=== PATIENT | female | born 1935 | race Caucasian/White ===

== ENCOUNTER 2016-09-15 19:22 | Inpatient (IN) | payer OTHER ==
--- NOTE | 2016-09-15 19:18 | EDPHY ---
H & P Time Seen by Provider: 09/15/16 19:22 HPI/ROS: Portions of this note were transcribed by a medical director of hospice. I personally performed the history, physical exam, and medical decision-making; and confirmed the accuracy of the information in the transcribed note. CHIEF COMPLAINT: Left hip injury HISTORY OF PRESENT ILLNESS: This patient is an anticoagulated 80 year old female who presents to the Emergency Department by EMS with left hip pain secondary to falling out of bed earlier today. 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 She tells me that she was sleeping when she fell out of bed; she woke up when she hit her left hip. She denies head, neck, or back trauma. Upon arrival she complains of moderate left hip pain exacerbated by movement. Unable to stand. Started right after the fall. Her pain was alleviated slightly my Morphine and Fentanyl administered in transport. She has no additional complaints. She denies any recent illnesses or fevers. REVIEW OF SYSTEMS: She reports scattered bruising, normal for her. She is blind in her right eye. Otherwise, a comprehensive 10 point review of systems is negative aside from elements mentioned in the history of present illness. PAST MEDICAL HISTORY: Regularly on 3L O2 at home. Atrial flutter (Warfarin). Breast cancer metastatic to bone. Social history: Moved here from [place] four months ago. No local PCP. She is taken care of intermittently by in-home hospice Daughter and son-in-law at bedside. General Appearance: Alert and conversant, cooperative. Eyes: No scleral icterus. Blind in right eye. ENT, Mouth: Normal mucous membranes. No external evidence of head trauma. Respiratory: Normal respiratory effort, breath sounds equal, lungs are clear to auscultation. Cardiovascular: Regular rate and rhythm. Normal pulse in the left foot. Gastrointestinal: Abdomen is soft and non tender. Neurological: Alert and oriented x3. Normally conversant. Face symmetric, normal sensation in all extremities. She can move the toes of both feet. Skin: Extensive scattered ecchymosis to the extremities; the patient states this is normal for her. Musculoskeletal: No peripheral edema. Left leg is shortened, externally rotated. Left hip pain on rotation and axial loading. Neck and back: No cervical, thoracic, or lumbar spine midline tenderness. Psychiatric: Not agitated. Emergency Department course/MDM: Took EMS report at bedside. The patient's daughter tells me that the patient is taken care of by [facility]. We have contacted them given high suspicion for hip fracture to discuss appropriate treatment. 1951: [facility] staff arrived in the ED. 1954: I discussed imaging results with the patient and her family. I shared with them options of hospital admission with or without surgery, arrangement for senior care care, or discharge home with pain management and regular hospice care. She wishes to be admitted to the hospital tonight and will make decisions on future treatment at a later point. I agree that this is an appropriate treatment plan for this time. 2026: Consultation with Dr. Cesar Randhawa, orthopedic surgeon, who will visit the patient in the hospital tomorrow. 2035: Consultation with Dr. Jeanne Nava, hospitalist, who accepts admission. IMAGING: Study: X-ray of the left hip Indication: Pain, trauma Results: X-ray of the left hip was obtained. The results of the study are: Left femoral neck fracture. I viewed the images myself on the PACS system. Radiologist interpretation is pending at the time of this report. Constitutional: Initial Vital Signs Temperature (C) 37.3 C 09/15/16 19:25 Heart Rate 130 H 09/15/16 19:25 Respiratory Rate 20 09/15/16 19:25 Blood Pressure 139/108 H 09/15/16 19:25 O2 Sat (%) 98 09/15/16 19:25 O2 Delivery Mode Nasal Cannula O2 (L/minute) 3 Allergies/Adverse Reactions: hydrocodone bitartrate [From Vicodin] Allergy (Intermediate, Verified 09/15/16 23:23) Hives Sulfa (Sulfonamide Antibiotics) Allergy (Intermediate, Verified 09/15/16 23:23) Rash acetaminophen [From Vicodin] Adverse Reaction (Unknown, Verified 09/15/16 23:22) Home Medications: Medication Instructions Recorded AMITRIPTYLINE HCL [Amitriptyline 100 mg PO HS 09/15/16 100 mg] Acetaminophen [Tylenol 325mg (*)] 650 mg PO Q4 PRN 09/15/16 Albuterol [Proventil Inhaler HFA 2 puffs IH Q4H 09/15/16 (*)] Anastrozole [Arimidex 1 mg (*)] 1 mg PO DAILY 09/15/16 Bisacodyl [Dulcolax] 5 mg PO BID 09/15/16 Dexamethasone [Decadron 4 MG (*)] 8 mg PO DAILY 09/15/16 Dextran 70/Hypromellose 1 each OP DAILY PRN 09/15/16 [Artificial Tears] Docusate Sodium [Colace 100 MG (*)] 100 mg PO HS 09/15/16 Furosemide [Lasix 40 MG (*)] 40 mg PO DAILY 09/15/16 Gentamicin 0.3% [Gentak 0.3% Opht 2 drop OP DAILY 09/15/16 Drops (RX)] HYDROmorphone HCL [Dilaudid 4 mg 4 mg PO TID PRN 09/15/16 (*)] Ipratropium/Albuterol [Duoneb (*)] 3 ml IH DAILY 09/15/16 LORazepam [Ativan (*)] 0.5 mg PO Q6H PRN 09/15/16 Morphine Sulfate [Ms Contin] 30 mg PO DAILY@04,21 09/15/16 Polyvinyl Alcohol/Povidone/Pf 1 each OP DAILY 09/15/16 [Refresh Classic Eye Drops] Potassium Chloride [Klor-Con 10] 10 meq PO DAILY 09/15/16 Warfarin Sodium [Coumadin 2MG (*)] 1 mg PO MOTUWETHFRSA 09/15/16 Warfarin Sodium [Coumadin 2MG (*)] 2 mg PO LOPEZ 09/15/16 morphINE IR [morphINE IR 15 mg (*)] 15 mg PO DAILY@14 09/15/16 Medical Decision Making Differential Diagnosis: Differential for left hip injury considered including but not limited to hip fracture, pelvis fracture, hip dislocation, contusion. - Data Points Laboratory Results: Laboratory Results 09/15/16 20:35 09/15/16 20:35 09/15/16 09/15/16 20:35 20:20 WBC 10.97 H 10^3/uL (3.80-9.50) RBC 4.63 10^6/uL (4.18-5.33) Hgb 13.8 g/dL (12.6-16.3) Hct 43.0 % (38.0-47.0) MCV 92.9 fL (81.5-99.8) MCH 29.8 pg (27.9-34.1) MCHC 32.1 L g/dL (32.4-36.7) RDW 16.7 H % (11.5-15.2) Plt Count 223 10^3/uL (150-400) MPV 9.0 fL (8.7-11.7) Neut % (Auto) 86.5 H % (39.3-74.2) Lymph % (Auto) 7.1 L % (15.0-45.0) [place] % (Auto) 5.1 % (4.5-13.0) Eos % (Auto) 0.0 L % (0.6-7.6) Baso % (Auto) 0.2 L % (0.3-1.7) Nucleat RBC Rel Count 0.0 % (0.0-0.2) Absolute Neuts (auto) 9.49 H 10^3/uL (1.70-6.50) Absolute Lymphs (auto) 0.78 L 10^3/uL (1.00-3.00) Absolute Monos (auto) 0.56 10^3/uL (0.30-0.80) Absolute Eos (auto) 0.00 L 10^3/uL (0.03-0.40) Absolute Basos (auto) 0.02 10^3/uL (0.02-0.10) Absolute Nucleated RBC 0.00 10^3/uL (0-0.01) Immature Gran % 1.1 % (0.0-1.1) Immature Gran # 0.12 H 10^3/uL (0.00-0.10) PT 20.8 H SEC (12.0-15.0) INR 1.78 H (0.83-1.16) Sodium 141 mEq/L (134-144) Potassium 3.9 mEq/L (3.5-5.2) Chloride 104 mEq/L (97-110) Carbon Dioxide 33 H mEq/l (22-31) Anion Gap 4 mEq/L (8-16) BUN 23 mg/dL (7-23) Creatinine 0.6 mg/dL (0.6-1.0) Estimated GFR > 60 Glucose 116 H mg/dL (70-100) Calcium 8.7 mg/dL (8.5-10.4) Urine RBC 1-3 /hpf (0-3) Urine WBC 15-25 H /hpf (0-3) Ur Epithelial Cells NONE SEEN /lpf (NONE-1+) Departure - Departure Disposition: [facility] Inpatient Acute Clinical Impression: Fracture of femoral neck, left Qualifiers: Encounter type: initial encounter Fracture type: closed Qualifier Code: ( S72.002A) Fracture of unspecified part of neck of left femur, initial encounter for closed fracture Condition: Fair Report Scribed for: Ricardo Conte Report Scribed by: Irish Priest Date of Report: 09/15/16 Time of Report: 19:18
--- NOTE | 2016-09-15 20:49 | DX ---
Two Views of the Hip September 15, 2016 at 1953 hours Indication: Hip pain. Comparisons: None. Findings: There is a left femoral neck fracture, with superior displacement of approximately 2 cm of the distal fracture fragment in relation to the femoral head and neck. The femoral head appears nor mal in the acetabulum bilaterally. No pubic rami fractures. Degenerative changes in the lower spine are present. Impression: Left femoral neck fracture. Initial accurate preliminary provided by the Emergency Depa rtment physician. E:CHLOE/librado
[2016-09-15 20:54] LABS: % IMMATURE GRANULYOCYTES 1.1 % (0.0-1.1); ABSOLUTE IMMATURE GRANULOCYTES 0.12 10^3/uL (0.00-0.10); ADD DIFF? NO; ADD MORPH? NO; ADD SCAN? NO; ATYPICAL LYMPHOCYTE FLAG 0 (0-99); FRAGMENT RBC FLAG 0 (0-99); HEMOGLOBIN 13.8 g/dL (12.6-16.3); LEFT SHIFT FLG 20 (0-99); LIPEMIA HEMOLYSIS FLAG 80 (0-99); MEAN CELL HEMOGLOBIN 29.8 pg (27.9-34.1); MEAN CELL HEMOGLOBIN CONCENTR. 32.1 g/dL (32.4-36.7); MEAN CELL VOLUME 92.9 fL (81.5-99.8); PLATELET CLUMPS FLAG 0 (0-99); PLATELET COUNT 223 10^3/uL (150-400); RED BLOOD CELL COUNT 4.63 10^6/uL (4.18-5.33); RED CELL DISTRIBUTION WIDTH 16.7 % (11.5-15.2)
[2016-09-15 20:59] LABS: INR 1.78 (0.83-1.16); PROTIME(PATIENT) 20.8 SEC (12.0-15.0)
[2016-09-15] MEDS ORDERED: HYDROmorphONE/DILAUDID 1 MG/ML SYR IVP PRN (20:59)
[2016-09-15] MEDS ORDERED: ONDANSETRON 4 MG/2 ML VIAL IVP PRN (20:59)
[2016-09-15] MEDS ORDERED: ONDANSETRON DISINTEGRATING 4 MG TAB PO PRN (20:59)
[2016-09-15] MEDS ORDERED: OXYCODONE/APAP 5/325 TAB PO PRN (20:59)
[2016-09-15] MEDS ORDERED: ACETAMINOPHEN 325 MG TAB PO PRN (20:59)
[2016-09-15 21:27] LABS: ANION GAP 4 mEq/L (8-16); CALCIUM 8.7 mg/dL (8.5-10.4); CARBON DIOXIDE 33 mEq/l (22-31); CHLORIDE 104 mEq/L (97-110); CREATININE 0.6 mg/dL (0.6-1.0); GLOMERULAR FILTRATION RATE > 60; GLUCOSE 116 mg/dL (70-100); POTASSIUM 3.9 mEq/L (3.5-5.2); SODIUM 141 mEq/L (134-144)
--- NOTE | 2016-09-15 22:22 | GHP ---
[f rep st] HISTORY AND PHYSICAL DATE OF ADMISSION: 09/15/2016 CHIEF COMPLAINT: Hip pain. HISTORY OF PRESENT ILLNESS: An 80-year-old female with a history of atrial flutter on anticoagulatio n and history of metastatic cancer recently in hospice, but well enough to be discharged home, who pr esents after falling out of bed the evening of presentation and obtaining a left hip fracture. In e emergency department, the patient reports left hip pain which is rather severe. She denies any diamond rtness of breath, chest pain, palpitations, headache dizziness, nausea, vomiting. She has intermitte nt constipation which has been unchanged. No melena. No dysuria. No hematuria. She does have intertype operator christina lower extremity edema which has been stable. PAST MEDICAL HISTORY: 1. 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 2. Breast cancer. It is unclear to me if it is breast cancer that is currently metastatic. 3. Atrial flutter, on blood thinners. 4. Intermittent constipation. SOCIAL HISTORY: Patient is a daily tobacco smoker and has been for over 70 years. Currently smokes about a half a pack a day. Denies any alcohol, illicit drug or marijuana use. FAMILY HISTORY: Negative for breast cancer. ADVANCED DIRECTIVES: Patient is full cor, full tube. Her daughter would be her medical decision nerissa er. REVIEW OF SYSTEMS: A 10-point review of systems is negative for the exception of that reported in e HPI. PHYSICAL EXAMINATION: VITAL SIGNS: Blood pressure is 106/79, heart rate 136, respiratory rate 20, s atting 100% on 3 L, 37.0. GENERAL: This is a pleasant elderly female lying flat in bed. HEENT: No table for dry mucous membranes. Eye exam is negative for any icterus. CARDIAC: Patient is irregula r and tachycardic. PULMONARY: Has good respiratory effort, is clear to auscultation bilaterally on anterior auscultation. GASTROINTESTINAL: The patient is obese. Positive bowel sounds. Soft, nonte nder in all 4 quadrants. MUSCULOSKELETAL: Notable for 2+ pitting edema of the lower extremities. I t is symmetric. SKIN: Notable for scattered ecchymoses. NEUROLOGIC: She is alert and oriented x3. PSYCHIATRIC: She is pleasant and cooperative on interview and examination. DATA: White count 10.9. INR 1.78. Creatinine 0.6. Hip x-ray, which I personally reviewed and interpreted, shows a left femoral neck fracture. ASSESSMENT AND PLAN: This is an 80-year-old female with known cancer presenting with a left femoral neck fracture. 1. Acute left femoral neck fracture. The patient is having marked pain and is on chronic anticoagul ation. Will hold her anticoagulation this evening. I have discussed the case with Dr. Randhawa who will recommend surgical fixation. Will keep the patient n.p.o. overnight in preparation and continue with IV pain medications and IV fluids. 2. Atrial flutter. The patient appears to have poor baseline heart rate control. She describes aniyah obando on warfarin. We are waiting for her med reconciliation to complete. Again, will hold her anticoa gulation this evening, recheck an INR in the morning, and plan for potentially needing FFP (fresh fro servando plasma) preoperatively and Lovenox bridging post. Will follow her heart rates on her home medica tions and titrate as needed. 3. Breast cancer. The patient is unable to clearly explain whether it is her breast cancer primary that is metastatic or a different cancer. She is still interested in operative fixation of her hip. Will continue pain control. 4. Prophylaxis: Holding warfarin. Will place SCD (sequential compression device) to the right leg. 5. Diet: N.p.o. after midnight. DISPOSITION: I expect greater than 2 midnights as the patient is presenting with acute femoral neck fracture requiring operative fixation and postoperative care as well as IV pain medications. I have discussed the case with the emergency room physician. Patient will be triaged to the [facility] floor for Orthopaedic consultation and care. /[id number]/MODL
[2016-09-15 22:44] LABS: WBC,URINE 15-25 /hpf (0-3)
[2016-09-16] MEDS: NS 1,000 ML IV SCH ×2 (01:30→14:54)
[2016-09-16 05:40] LABS: % IMMATURE GRANULYOCYTES 0.6 % (0.0-1.1); ABSOLUTE IMMATURE GRANULOCYTES 0.04 10^3/uL (0.00-0.10); ADD DIFF? NO; ADD MORPH? NO; ADD SCAN? NO; ATYPICAL LYMPHOCYTE FLAG 0 (0-99); FRAGMENT RBC FLAG 0 (0-99); HEMATOCRIT 37.7 % (38.0-47.0); HEMOGLOBIN 12.2 g/dL (12.6-16.3); LEFT SHIFT FLG 0 (0-99); LIPEMIA HEMOLYSIS FLAG 80 (0-99); MEAN CELL HEMOGLOBIN 30.1 pg (27.9-34.1); MEAN CELL HEMOGLOBIN CONCENTR. 32.4 g/dL (32.4-36.7); MEAN CELL VOLUME 93.1 fL (81.5-99.8); PLATELET CLUMPS FLAG 0 (0-99); PLATELET COUNT 203 10^3/uL (150-400); RED BLOOD CELL COUNT 4.05 10^6/uL (4.18-5.33); RED CELL DISTRIBUTION WIDTH 16.7 % (11.5-15.2)
[2016-09-16 05:57] LABS: INR 1.85 (0.83-1.16); PROTIME(PATIENT) 21.4 SEC (12.0-15.0)
[2016-09-16 06:11] LABS: ANION GAP 3 mEq/L (8-16); CALCIUM 8.2 mg/dL (8.5-10.4); CARBON DIOXIDE 32 mEq/l (22-31); CHLORIDE 104 mEq/L (97-110); CREATININE 0.6 mg/dL (0.6-1.0); GLOMERULAR FILTRATION RATE > 60; GLUCOSE 94 mg/dL (70-100); POTASSIUM 3.9 mEq/L (3.5-5.2); SODIUM 139 mEq/L (134-144)
[2016-09-16] MEDS ORDERED: ceFAZolin 2 GM/DEXTROSE 100 ML IV ONE ×2 (07:34→18:00)
--- NOTE | 2016-09-16 08:14 | GCON ---
[f rep st] CONSULTATION DATE OF CONSULTATION: 09/16/2016 REASON FOR CONSULTATION: Left hip fracture. HISTORY OF PRESENT ILLNESS: The patient is an 80-year-old female with a history of metastatic breast cancer who just returned home to be on hospice care in [facility] with her daughter and son-in-law eladio miller fell out of bed yesterday evening, presented to the ED. X-rays were obtained which showed a fract ure. PRIOR MEDICAL HISTORY: Breast cancer, atrial flutter, history of cancer to the right eye. SOCIAL HISTORY: One pack per day for 70 years. Denies alcohol. Again lives in [facility] on [address] currently with her daughter and son-in-law. REVIEW OF SYSTEMS: Other than left hip pain, no shortness of breath or chest pain. PHYSICAL EXAM: GENERAL: Alert and oriented x3. VITAL SIGNS: Blood pressure is 105/65. Heart rate is 133, respiratory rate is 18, oxygen saturation is 96% on 3 L. Temperature is 36.9. EXTREMITIES: Left hip is short and externally rotated. Skin is intact. Compartments are soft. She has 5/5 ank le dorsiflexion, plantar flexion, strength. 2+ dorsalis pedis and posterior tibial pulses. Imaging x-rays 2 views of the left hip show osteopenia. There may be some lytic lesions in the proxi mal end of the femur. She has a displaced femoral neck fracture. LABORATORY VALUES: Her INR this morning is 1.8. Her Coumadin was held last evening. Hemoglobin and hematocrit are 12.2 and 37.7. ASSESSMENT: Metastatic breast cancer, now with mechanical fall and left femoral neck fracture. PLAN: I have discussed this with both the patient and her daughter, Alee, and we have agreed the best course of action would to proceed with intramedullary nail of the left hip to stabilize the frac ture. The risks and benefits, including blood loss, potential for postoperative blood clots and infe ction were all discussed. They understand these risks. We will plan on surgery later this afternoon . She may need some FFP at the time of surgery depending on how much blood loss there is. I do not anticipate much with this TFN nail. She will need to spend a couple days in the hospital, and then eladio krishnan will see if we can get her back home to hospice care. /[id number]/MODL
[2016-09-16] MEDS ORDERED: LORazepam 0.5 MG TAB PO PRN (10:40)
[2016-09-16] MEDS ORDERED: NON-FORMULARY NEW DRUG (Dextran 70/Hypromellose [Artificial Tears] 1 EACH) OP PRN (10:40)
[2016-09-16] MEDS ORDERED: TEARS/DEXTRAN 70/HYPROMELLOSE 15 ML OPHT.BTL EACHEYE PRN (10:54)
--- NOTE | 2016-09-16 10:55 | HOSPPROG ---
Hospitalist Progress Note Assessment/Plan: The patient is an 80-year-old female who has atrial flutter and is on anticoagulation who presented to the emergency room with hip pain. Today is my 1st encounter with the patient chart reviewed. #. Acute left femoral neck fracture - to get surgical fixation with Dr. Randhawa later today (to get an intramedullary nail of the left hip) #. atrial flutter - very tachycardic this morning - she is not on any ana laura therapy agent but is on oral anticoagulation - will get an EKG to further evaluate / she may be tachycardic because she is on scheduled morphine and has not received this - spoke with patient's daughter/ the patient has only been on anticoagulation and not on any other blocking agent - will give her a dose of diltiazem x1 p.o./ heart rate is in the 140s and doubtful she will tolerate this much longer without hypotension #. breast cancer/ unclear of how advanced this is - she was recently in hospice and was discharged home #. gait instability - this caused her femoral neck fracture #. Nicotine dependence -doesn't want a patch -current daily smoker #. elevated INR of 1.85 - she may require FFP in surgery /Dr. Randhawa to further decide #. code status - reviewed this with the daughter who is her medical a power of immigration attorney / she is a do not resuscitate - reviewed this with the patient/ she initially wanted to be a full code, but then changed her mind and wants to be a DNR #. DVT prophylaxis: athrombic pumps in pre-op setting #. plan: OR today/ repeat labs in a.m./ reinitiate OAC when ok with Dr Randhawa/ will need her long acting home pain medications resumed Subjective: Federico is not c/o pain. Objective: Vital Signs Temp Pulse Resp BP Pulse Ox 37.0 C 134 H 18 108/60 97 09/16/16 07:44 09/16/16 07:44 09/16/16 07:44 09/16/16 07:44 09/16/16 07:44 Laboratory Results 09/16/16 05:12 09/16/16 05:12 09/15/16 09/16/16 09/17/16 05:59 05:59 05:59 Output Total 1000 Balance -1000 PT 21.4 SEC (12.0-15.0) H 09/16/16 05:12 INR 1.85 (0.83-1.16) H 09/16/16 05:12 - Physical Exam Constitutional: not in pain, chronically ill appearing, obese Eyes: PERRL Ears, Nose, Mouth, Throat: hearing normal Cardiovascular: irregularly irregular, tachycardia Respiratory: no rales or rhonchi, reduced air movement (bibasilar) Gastrointestinal: normoactive bowel sounds Skin: warm, other (multiple ecchymotic areas artem on right forearm area) Musculoskeletal: No full muscle strength Neurologic: AAOx3 Psychiatric: interacting appropriately, thought process linear, flat affect ICD10 Worksheet Patient Problems: Problems Problem Status Diagnosed Fracture of femoral neck, left Acute
[2016-09-16] MEDS: CARBOXYMETHYLCELLULOSE 0.5% 0.4 ML DROPERETTE EACHEYE SCH (11:04)
--- NOTE | 2016-09-16 11:07 | CPEKG ---
Heart Rate: 133 RR Interval: 451 P-R Interval: 132 QRSD Interval: 98 QT Interval: 308 QTC Interval: 459 P [place]: 92 QRS [place]: 60 T Wave [place]: 77 EKG Severity - OTHERWISE NORMAL ECG - EKG Impression: SINUS TACHYCARDIA Preliminary Awaiting MD Review
[2016-09-16] MEDS ORDERED: DILTIAZEM 30 MG TAB PO ONE (11:16)
[2016-09-16] MEDS: ALBUTEROL 60 PUFFS/8 GM MDI IH SCH ×3 (11:36→21:49)
[2016-09-16] MEDS: IPRATROPIUM/ALBUTEROL 3 ML DEYVIAL IH SCH (11:38)
[2016-09-16] MEDS: DEXAMETHASONE 4 MG TAB PO SCH (11:52)
--- NOTE | 2016-09-16 16:55 | GCON ---
[f rep st] CONSULTATION CARDIAC CONSULTATION DATE OF CONSULTATION: 09/16/2016 REASON FOR CONSULTATION: Preoperative clearance for a patient with chronic atrial flutter. HISTORY OF PRESENT ILLNESS: This is an 80-year-old female who yesterday while sleeping, rolled out o f bed and fractured her left hip. She is needing an intramedullary nail pinning for stability. Her past medical history is complex and confusing at times. Up until 4 months ago, she lived in [facility] on, was at the [facility] there. She apparently had stage IV metastatic "bone marrow cancer." She was placed in a hospice at that time. Apparently she was also noted to be in chronic atrial fibrilla tion/atrial flutter. She was given warfarin. She has never been chemically cardioverted or electric ally cardioverted. There were no other AV blocking agents given apparently. For financial reasons, she was brought to [place] for hospice care. Apparently, she has done well, receiving her medicines through hospice and she has had no ACS, PND, orthopnea, or pedal edema. She is fairly wheelchair elvie und. I did speak to her and her daughter. She continues to smoke and has over an 12-rmam-raye histo ry of cigarette smoking. Her EKG shows probable 2:1 flutter. She says her heart rate has always bee n high without any ongoing issues. Her daughter confirms this. She is DNR. Her INR is being revers ed with FFP. I had a long conversation with the patient and her daughter, and I outline her high ris k for any surgical procedures. They understand and still wish to proceed knowing the complications a re high. Prior to surgery, she will have an echocardiogram and I will give her dosing of digoxin to see if we can get a variable heart block and a slower heart rate. Her blood pressures are 95 to 100 at this time. She is asymptomatic. She denies any ongoing fever, chills, night sweats, or other iss ues. She has no local physician. PAST MEDICAL HISTORY: She apparently had cancer of her right eye, breast cancer, and leukemia. She has a chronic history of atrial flutter on warfarin. SOCIAL HISTORY: She is in hospice, the [facility] in [place]. She has daily tobacco smoking of a jordan lf to 2-ucmu-sem-day for over 70 years. FAMILY HISTORY: Noncontributory. REVIEW OF SYSTEMS: No ACS symptomatology. No PND or orthopnea. No bleeding issues that she identif ies. PHYSICAL EXAMINATION: VITAL SIGNS: Blood pressure is 98/70, heart rate is 130s in 2:1 flutter. GEN ERAL: She is an elderly female, lying comfortably. HEENT: She has moist oropharynx. NECK: Soft. LUNGS: Clear. CARDIOVASCULAR: Tachycardiac rhythm. I could not hear a loud murmur, gallop or rub . ABDOMEN: Soft, nontender. MUSCULOSKELETAL: Showed some mild excoriations on her arms and wrists . No edema. LABORATORY EVALUATION: White count of 7, hemoglobin of 12. Creatinine 0.6. ASSESSMENT: Chronic atrial fibrillation/atrial flutter. Treated with warfarin for at least 6 months if not longer. The patient has never had any attempt to cardiovert. She is hemodynamically stable, lying comfortably in bed and is not on any AV ravi blocking agents at this time. Prior to surgery, I would like to check an echocardiogram to assess for any cardiomyopathies or valvular heart disease not recognized on exam today. I will also add digoxin 1 mg loading dose to see if we can slow her h eart rate down. She is a long-term heavy smoker. Would try to avoid beta blockers at this time. Sergio krishnan was given diltiazem with some dip in her blood pressure and will hold back on that at this time as well. A had a long talk with her and her daughter, who confirmed DNR status. They also understand t he high risk potential of cardiac complications if not pulmonary complications with any surgeries. T his surgery is deemed to be palliative as far as I can tell, with pain relief so that she can have be tter activities of daily living. She was in hospice, but apparently was to be discharged. I did sta te that at this point, getting a local primary care physician would be of most importance for further care and health needs. This was discussed with her and her daughter. They understand, accept, and wish to proceed. At this point, plan for echocardiogram and digoxin loading. FFP will be used to co rrect her INR as needed. I spoke to Dr. Randhawa, as well as Helena Busch NP about her case and hopefully she can have surgery within the next 24 hours. /[id number]/MODL
--- NOTE | 2016-09-16 17:19 | ECHO ---
[id number] + + [address] : : [place] [address] : : [phone] + + Adult Echocardiographic Report + ------+ :Name: BETTY SALDIVAR RStudy Date: 09/16/2016 04:28 PM : : Hospital Admission Number: [id number] Locatio n: 359: :: 1935 Gender: Female Height: 69 in : :Age: 80 yrs Race: WH Weight: 200 lb : :Reason For Study: atrial flutter, pre-op : : BSA: 2.1 meters 2 : :History: No previous : + ------+ MMode/2D Measurements & Calculations IVSd: 1.4 cm RVDd: 2.5 cm FS: 31.3 % LVOT diam: 1.8 cm LVPWd: 1.2 cm LVIDd: 3.0 cm EDV(Teich): LVOT area: LVIDs: 2.1 cm 35.5 ml 2.6 cm2 ESV(Teich): 14.0 ml EF(Teich): 60.7 % LVLd ap4: 6.1 cm SV(MOD-sp4): EDV(MOD-sp4): 36.0 ml 54.0 ml LVLs ap4: 5.2 cm ESV(MOD-sp4): 18.0 ml EF(MOD-sp4): 66.7 % Normal Measurement Values: + + :LVIDd (3.5-5.7cm) IVSd (0.6-1.1cm) LVPWd (0.6-1.1cm) Aortic Root (2.0-3.7cm)Left Atrium (1.5-4.0cm): :LV Vol(d) (76-115ml) LV Vol(s) (29-48ml) Ejec Fraction (50-65%)PV Armani (0.6- 1.2m/s) TV Armani (0.4-1.0m/s) : :MV E Armani (0.8-1.0m/s)MV A Armani (0.3-1.0m/s)LVOT Armani (0.7-1.2m/s) Asc Ao Armani ( 0.9-1.8m/s) : + + Doppler Measurements & Calculations MV E max armani: MV V2 max: Ao mean PG: LV V1 mean P.7 cm/sec 123.8 cm/sec 1.8 mmHg 1.4 mmHg MV dec time: MV max PG: Ao V2 mean: LV V1 mean: 0.07 sec 6.1 mmHg 60.9 cm/sec 53.6 cm/sec MV V2 mean: Ao V2 VTI: 14.9 cm LV V1 VTI: 14.3 cm 90.6 cm/sec WILLIE(I,D): 2.5 cm2 MV mean P.8 mmHg MV V2 VTI: 12.7 cm MVA(VTI): 3.0 cm2 SV(LVOT): 37.5 ml PA V2 max: TR max armani: 77.7 cm/sec 242.8 cm/sec PA max PG: TR max P.4 mmHg 23.6 mmHg RAP systole: 15.0 mmHg RVSP(TR): 38.6 mmHg Left Ventricle The left ventricle is normal in size and function. There is mild concentric left ventricular hypertrophy. Ejection Fraction = 55-60%%. There is Doppler evidence for diastolic dysfunction. Left ventricular systolic function is normal. No regional wall motion abnormalities noted. Right Ventricle The right ventricle is normal in size and function. Atria The left atrial size is normal. Right atrial size is normal. The interatrial septum is intact with no evidence for an atrial septal defect. Mitral Valve There is mild to moderate mitral annular calcification. There is no mitral valve stenosis. There is trace mitral regurgitation. Tricuspid Valve The tricuspid valve is normal in structure and function. There is no tricuspid stenosis. There is trace tricuspid regurgitation. Right ventricular systolic pressure is 38.6mmHg. Aortic Valve Mild Aortic Valve Calcification. There is no aortic stenosis. There is no aortic insufficiency. Pulmonic Valve The pulmonic valve is not well visualized. There is no pulmonic valvular stenosis. There is no pulmonic valvular regurgitation. Great Vessels The aortic root is normal size. Pericardium/Pleural There is a fat pad seen. Conclusion A complete two-dimensional transthoracic echocardiogram was performed (2D, M-mode, Doppler and color flow Doppler). The left ventricle is normal in size and function. There is mild concentric left ventricular hypertrophy. There is Doppler evidence for diastolic dysfunction. The right ventricle is normal in size and function. There is mild to moderate mitral annular calcification. There is trace mitral regurgitation. There is trace tricuspid regurgitation. Right ventricular systolic pressure is 38.6mmHg. Mild Aortic Valve Calcification Left ventricular systolic function is normal. Ejection Fraction = 55-60%%. Final Reading Physician: Briana Grande signed on 09/16/2016 05:18 PM Ordering Physician: RENETTA WATSON Performed By: Jazmín Fox
[2016-09-16] MEDS: DIGOXIN 250 MCG TAB PO SCH ×2 (17:20→21:20)
[2016-09-16] MEDS: DOCUSATE SODIUM 100 MG CAP PO SCH (21:19)
[2016-09-16] MEDS: morphINE SR 30 MG TAB PO SCH (21:19)
[2016-09-16] MEDS: BISACODYL 5 MG EC TAB PO SCH (21:19)
[2016-09-16] MEDS: AMITRIPTYLINE HCL 100 MG TAB PO SCH (21:19)
[2016-09-17] MEDS: ALBUTEROL 60 PUFFS/8 GM MDI IH SCH ×3 (01:46→05:37)
[2016-09-17] MEDS: NS 1,000 ML IV SCH ×2 (05:17→21:58)
[2016-09-17] MEDS: morphINE SR 30 MG TAB PO SCH ×2 (05:19→21:59)
[2016-09-17] MEDS: DIGOXIN 250 MCG TAB PO SCH ×2 (05:20→09:37)
[2016-09-17 05:28] LABS: % IMMATURE GRANULYOCYTES 0.6 % (0.0-1.1); ABSOLUTE IMMATURE GRANULOCYTES 0.04 10^3/uL (0.00-0.10); ADD DIFF? NO; ADD MORPH? NO; ADD SCAN? NO; ATYPICAL LYMPHOCYTE FLAG 0 (0-99); FRAGMENT RBC FLAG 0 (0-99); HEMATOCRIT 38.1 % (38.0-47.0); HEMOGLOBIN 12.3 g/dL (12.6-16.3); LEFT SHIFT FLG 0 (0-99); LIPEMIA HEMOLYSIS FLAG 80 (0-99); MEAN CELL HEMOGLOBIN 30.4 pg (27.9-34.1); MEAN CELL HEMOGLOBIN CONCENTR. 32.3 g/dL (32.4-36.7); MEAN CELL VOLUME 94.1 fL (81.5-99.8); MEAN PLATELET VOLUME 9.2 fL (8.7-11.7); PLATELET CLUMPS FLAG 0 (0-99); PLATELET COUNT 190 10^3/uL (150-400); RED BLOOD CELL COUNT 4.05 10^6/uL (4.18-5.33); RED CELL DISTRIBUTION WIDTH 16.5 % (11.5-15.2)
[2016-09-17 05:39] LABS: INR 1.43 (0.83-1.16); PROTIME(PATIENT) 17.4 SEC (12.0-15.0)
[2016-09-17 05:58] LABS: ANION GAP 0 mEq/L (8-16); CALCIUM 8.3 mg/dL (8.5-10.4); CARBON DIOXIDE 29 mEq/l (22-31); CHLORIDE 108 mEq/L (97-110); CREATININE 0.6 mg/dL (0.6-1.0); GLOMERULAR FILTRATION RATE > 60; GLUCOSE 112 mg/dL (70-100); POTASSIUM 4.3 mEq/L (3.5-5.2); SODIUM 137 mEq/L (134-144)
[2016-09-17] MEDS ORDERED: NON-FORMULARY NEW DRUG (Polyvinyl Alcohol/Povidone/Pf [Refresh Classic Eye Drops] 1 EACH) OP SCH (09:00)
[2016-09-17] MEDS: CARBOXYMETHYLCELLULOSE 0.5% 0.4 ML DROPERETTE EACHEYE SCH (09:36)
[2016-09-17] MEDS: BISACODYL 5 MG EC TAB PO SCH ×2 (09:37→21:59)
[2016-09-17] MEDS: DEXAMETHASONE 4 MG TAB PO SCH (09:37)
[2016-09-17] MEDS: IPRATROPIUM/ALBUTEROL 3 ML DEYVIAL IH SCH ×3 (09:55→17:51)
[2016-09-17] MEDS ORDERED: FUROSEMIDE 40 MG/4 ML VIAL IVP ONE ×2 (10:07→13:00)
--- NOTE | 2016-09-17 10:10 | HOSPPROG ---
Hospitalist Progress Note Assessment/Plan: The patient is an 80-year-old female who has atrial flutter and is on anticoagulation who presented to the emergency room with hip pain. #. Acute left femoral neck fracture - to get surgical fixation with Dr. Randhawa later today (to get an intramedullary nail of the left hip) -surgery was held yesterday due to aflutter/rapid #. chronic afib/ atrial flutter -cont to be tachycardic/did not slow with digoxin - she is not on any ana laura therapy agent but is on oral anticoagulation -spoke w Cardiology this morning/ ok for surgery, but is high risk #. Possible UTI -start Ceftriaxone #. breast cancer/ unclear of how advanced this is - she was recently in hospice and was discharged home #. gait instability - this caused her femoral neck fracture #. Nicotine dependence -doesn't want a patch -current daily smoker #. elevated INR of 1.43 - she may require FFP in surgery /Dr. Randhawa to further decide #. code status dnr #. DVT prophylaxis: athrombic pumps in pre-op setting #. plan: OR today/ will give a dose of lasix/ has bilateral crackles Objective: Vital Signs Temp Pulse Resp BP Pulse Ox 36.9 C 133 H 19 132/75 H 94 09/17/16 07:34 09/17/16 09:56 09/17/16 09:56 09/17/16 07:34 09/17/16 09:56 Laboratory Results 09/17/16 05:16 09/17/16 05:16 09/16/16 09/17/16 09/18/16 05:59 05:59 05:59 Intake Total 1350 Output Total 1000 1250 Balance -1000 100 PT 17.4 SEC (12.0-15.0) H 09/17/16 05:16 INR 1.43 (0.83-1.16) H 09/17/16 05:16 ICD10 Worksheet Patient Problems: Problems Problem Status Diagnosed Fracture of femoral neck, left Acute
[2016-09-17] MEDS: GENTAMICIN 0.3% OPHT DROPS 5ML OP SCH (14:18)
[2016-09-17] MEDS ORDERED: DIGOXIN 250 MCG TAB PO ONE (14:35)
--- NOTE | 2016-09-17 14:44 | SOAPPROG ---
CELESTINA Progress Note Assessment/Plan: Assessment:1. atrial flutter...chronic...well tolerated.... 2-D echo yesterday showed normal lvef and no significant VHD..off coumadin for surgery...some variability to A-V block probably from digoxin..will give another dose now pre - op...pt understands her high risks for complications with her atrial flutter, long continued cigarette smoking and unknown immunological status given her h/o "bone marrow "cancer and hospice care. Plan:1. surgical repair of femur fx today 09/17/16 14:38 Subjective: pt resting comfortably from a cv standpoint..awaiting surgery later today Objective: Vital Signs Temp Pulse Resp BP Pulse Ox 36.9 C 133 H 18 124/91 H 98 09/17/16 12:00 09/17/16 12:00 09/17/16 12:00 09/17/16 12:00 09/17/16 12:00 Laboratory Results 09/17/16 05:16 09/17/16 05:16 09/16/16 09/17/16 09/18/16 05:59 05:59 05:59 Intake Total 1350 Output Total 1000 1250 Balance -1000 100 PT 17.4 SEC (12.0-15.0) H 09/17/16 05:16 INR 1.43 (0.83-1.16) H 09/17/16 05:16 Physical Exam - Physical Exam Respiratory: lungs clear (anteriorly) Cardiac/Chest: normal peripheral pulses, irregularly irregular ICD10 Worksheet Patient Problems: Problems Problem Status Diagnosed Fracture of femoral neck, left Acute
[2016-09-17] MEDS ORDERED: BUPIVACAINE/EPI 0.5% 30 ML SDV ONE (15:33)
--- NOTE | 2016-09-17 16:34 | HOSPPROG ---
Hospitalist Progress Note Assessment/Plan: The patient is an 80-year-old female who has atrial flutter and is on anticoagulation who presented to the emergency room with hip pain. Reviewed her care with Dr Wyman/ appreciate his involvement. #. Acute left femoral neck fracture - to get surgical fixation with Dr. Randhawa later today (to get an intramedullary nail of the left hip) -surgery was held yesterday due to aflutter/rapid #. chronic afib/ atrial flutter - cont to be tachycardic - she is not on any ana laura therapy agent but is on oral anticoagulation -spoke w Cardiology this morning/ ok for surgery, but is high risk -she is at a slower rate than yesterday after receiving Lasix and digoxin #. Possible UTI -start Ceftriaxone #. breast cancer/ unclear of how advanced this is - she was recently in hospice and was discharged home #. gait instability - this caused her femoral neck fracture #. Nicotine dependence -doesn't want a patch -current daily smoker #. elevated INR of 1.43 - she may require FFP in surgery / to further decide #. code status -dnr #. DVT prophylaxis: athrombic pumps in pre-op setting #. plan: OR today/ will give a dose of lasix/ has bilateral crackles (she may need her oral Lasix resumed tomorrow along with potassium) Subjective: Federico is not c/o pain/ tearful about surgery and says "I hope I make it". Objective: Vital Signs Temp Pulse Resp BP Pulse Ox 36.9 C 133 H 18 124/91 H 98 09/17/16 12:00 09/17/16 12:00 09/17/16 12:00 09/17/16 12:00 09/17/16 12:00 Laboratory Results 09/17/16 05:16 09/17/16 05:16 09/16/16 09/17/16 09/18/16 05:59 05:59 05:59 Intake Total 1350 Output Total 1000 1250 Balance -1000 100 PT 17.4 SEC (12.0-15.0) H 09/17/16 05:16 INR 1.43 (0.83-1.16) H 09/17/16 05:16 - Physical Exam Constitutional: not in pain, chronically ill appearing Eyes: PERRL Ears, Nose, Mouth, Throat: hearing normal Cardiovascular: irregularly irregular, tachycardia Respiratory: rhonchi (scattered/ decreased lung sounds bibasilar) Gastrointestinal: normoactive bowel sounds Genitourinary: vazquez in urethra Skin: warm, other (multiple ecchymotic areas on her right forearm area) Musculoskeletal: muscular tenderness Neurologic: AAOx3 Psychiatric: anxious ICD10 Worksheet Patient Problems: Problems Problem Status Diagnosed Fracture of femoral neck, left Acute
[2016-09-17] MEDS ORDERED: ETOMIDATE 20 MG/10 ML VIAL ONE ×2 (17:01)
[2016-09-17] MEDS ORDERED: fentaNYL 100 MCG/2 ML INJ ONE (17:01)
[2016-09-17] MEDS ORDERED: ESMOLOL HCL 100 MG/10 ML VIAL IV ONE (17:35)
[2016-09-17] MEDS ORDERED: METOPROLOL TARTRATE 5 MG/5 ML INJ ONE (17:35)
[2016-09-17] MEDS ORDERED: LIDOCAINE 2% 100 MG/5 ML SYR IVP ONE (17:36)
[2016-09-17] MEDS ORDERED: ONDANSETRON 4 MG/2 ML VIAL ONE (17:52)
[2016-09-17] MEDS ORDERED: DEXAMETHASONE 4 MG/ML VIAL ONE (17:52)
--- NOTE | 2016-09-17 18:17 | POSTOPPROG ---
Post Op Note Date of Operation: 09/17/16 Surgeon: Cesar Randhawa Anesthesia: GET(General Endotracheal) Pre-op Diagnosis: Lt closed femoral neck fx Post-op Diagnosis: same Procedure: IMN lt hip Inf/Abcess present in the surg proc area at time of surgery?: No EBL: Minimal Complications: none
[2016-09-17] MEDS ORDERED: OXYCODONE/APAP 5/325 TAB PO PRN (18:18)
[2016-09-17] MEDS ORDERED: MAGNESIUM HYDROXIDE 30 ML UDCUP PO PRN (18:18)
--- NOTE | 2016-09-17 18:44 | GOP ---
[f rep st] OPERATIVE REPORT DATE OF OPERATION: 09/17/2016 SURGEON: Cesar Randhawa MD ANESTHESIA: General. PREOPERATIVE DIAGNOSIS: Left femoral neck fracture. POSTOPERATIVE DIAGNOSIS: Left femoral neck fracture. PROCEDURE PERFORMED: Short Titanium Trochanteric Fixation Nail System intramedullary nail, left hip. FINDINGS: ESTIMATED BLOOD LOSS: Less than 50 mL. DESCRIPTION OF PROCEDURE: After appropriate informed consent was obtained, patient was taken to the operating room. Timeout was performed. Patient was identified, correct site was identified, matched with the radiographs in the room. She had received Rocephin earlier in the day. She did not receiv e an additional antibiotic dose. Following the induction of general endotracheal anesthesia, she was transferred to the fracture table. Left hip was placed in a traction boot. Right leg was placed in a well-padded well leg marsh and flexed out of the way. Fluoroscopy was brought in and with slight traction and internal rotation, the hip fracture was reduc ed. We then prepped the left hip in the usual sterile fashion, draped it. Using a starting guidepi n, we found the tip of the greater trochanter, confirmed its position with fluoroscopic imaging, drov e it down the shaft of the femur, used a small micky incision in the skin, bluntly dissected down to t he tip of the trochanter and using our starting reamer, entered the femoral canal. We attached our j ig to our nail, tapped it into place, then placed our external jig onto our intramedullary jig, and p laced 1 guidewire through the lateral cortex and up into the head and neck, confirmed its position w ith both AP and lateral fluoroscopic imaging. This measured 105. We placed a spiral blade plate, ta pped it into place, then placed using our external jig 1 distal locking screw 36 mm in length. Instrumentation was removed. Final imaging was obtained. Wounds were irrigated. Deep layers were c losed with 0 Vicryl. Superficial layers were closed with 2-0 Vicryl. Skin was closed with daniel. I instilled 20 mL of 0.5% Marcaine around the incisions. A sterile dressing was applied. Patient was awakened from anesthesia, taken to recovery room in satisfactory condition. There were n o immediate intraoperative complications. COMPLICATIONS: None. DRAINS: None. IMPLANTS USED: Synthes short TFN, 12 mm diameter. HISTORY: Federico is an 80-year-old female with metastatic breast cancer who is on Hospice, who fell a nd broke her left femoral neck. She was admitted to the hospital on the . She had AFib. We got an echocardiogram, tried to optimize her cardiovascular status, and brought her to the operating rosy m for definitive fixation. /[id number]/MODL
--- NOTE | 2016-09-17 19:04 | DX ---
Portable AP Supine Pelvis, Two Views, at 6:34 p.m. Clinical History: 80-year-old female in the PACU after a left hip ORIF. Comparison Study: Left hip dated September 15, 2016, and an intraoperative fluoroscopic image from jenniffer ornelas this evening at 5:23 p.m. Findings: The patient has undergone open reduction internal fixation for a left femoral neck fractur e. There has been placement of a compression screw directed from a subtrochanteric approach into the femoral neck and terminating in the femoral head, as well as a longstem intramedullary miladys, which ex tends from the greater trochanter to the proximal one-third femoral diaphysis, secured distally by a single orthopedic cortical retention screw. The bones are demineralized. The ischial pubic rami are intact. A guide wire projects over the lower central pelvis above the symphysis pubis. Impression: Status post ORIF for a left femoral neck fracture, with anatomic realignment.
[2016-09-17] MEDS ORDERED: traMADol 50 MG TAB PO PRN (20:22)
[2016-09-17] MEDS: ceFAZolin 2 GM/DEXTROSE 100 ML IV SCH (21:58)
[2016-09-17] MEDS: AMITRIPTYLINE HCL 100 MG TAB PO SCH (21:59)
[2016-09-17] MEDS: DOCUSATE SODIUM 100 MG CAP PO SCH (21:59)
--- NOTE | 2016-09-17 22:22 | DX ---
Intraoperative Fluoroscopy of the Left Hip Clinical History: 80-year-old female with a left femoral neck fracture, undergoing ORIF. Findings: Dr. Cesar Randhawa used 38.2 seconds of fluoroscopy time and 8.52 mGy exposure, and two spo t matrix intraoperative images were acquired at 5:59 p.m. identifying a compression screw directed fr om a subtrochanteric approach across the left femoral neck and terminating into the left femoral head , as well as a longstem intramedullary miladys extending caudally from the greater trochanter. Femoral n silvina cortical fracture line is seen. The femoral head is well-seated in the acetabulum. Impression: Intraoperative fluoroscopy during ORIF for a left femoral neck fracture.
[2016-09-18] MEDS: IPRATROPIUM/ALBUTEROL 3 ML DEYVIAL IH SCH ×5 (03:56→22:11)
[2016-09-18] MEDS: ceFAZolin 2 GM/DEXTROSE 100 ML IV SCH (04:52)
[2016-09-18] MEDS: morphINE SR 30 MG TAB PO SCH ×2 (04:52→20:47)
--- NOTE | 2016-09-18 05:34 | SOAPPROG ---
CELESTINA Progress Note Assessment/Plan: Assessment: Plan: 09/18/16 05:33 POD#1 IMN LT hip 50% wbing x 6 weeks LLE restart coumadin Today Subjective: slept o/n not much pain Objective: dressing c/d/i calf soft 5/5 df/pf xrays look good Vital Signs Temp Pulse Resp BP Pulse Ox 36.8 C 98 17 125/73 H 98 09/17/16 23:32 09/18/16 00:41 09/17/16 23:32 09/17/16 23:32 09/17/16 23:32 Laboratory Results 09/17/16 05:16 09/17/16 05:16 09/16/16 09/17/16 09/18/16 05:59 05:59 05:59 Intake Total 1350 1800 Output Total 1000 1250 1720 Balance -1000 100 80 PT 17.4 SEC (12.0-15.0) H 09/17/16 05:16 INR 1.43 (0.83-1.16) H 09/17/16 05:16 ICD10 Worksheet Patient Problems: Problems Problem Status Diagnosed Fracture of femoral neck, left Acute
[2016-09-18 05:45] LABS: % IMMATURE GRANULYOCYTES 0.7 % (0.0-1.1); ABSOLUTE IMMATURE GRANULOCYTES 0.05 10^3/uL (0.00-0.10); ADD DIFF? NO; ADD MORPH? NO; ADD SCAN? NO; ATYPICAL LYMPHOCYTE FLAG 0 (0-99); FRAGMENT RBC FLAG 10 (0-99); HEMATOCRIT 37.1 % (38.0-47.0); HEMOGLOBIN 12.1 g/dL (12.6-16.3); LEFT SHIFT FLG 10 (0-99); LIPEMIA HEMOLYSIS FLAG 80 (0-99); MEAN CELL HEMOGLOBIN 30.4 pg (27.9-34.1); MEAN CELL HEMOGLOBIN CONCENTR. 32.6 g/dL (32.4-36.7); MEAN CELL VOLUME 93.2 fL (81.5-99.8); MEAN PLATELET VOLUME 9.1 fL (8.7-11.7); PLATELET CLUMPS FLAG 0 (0-99); PLATELET COUNT 203 10^3/uL (150-400); RED BLOOD CELL COUNT 3.98 10^6/uL (4.18-5.33); RED CELL DISTRIBUTION WIDTH 16.4 % (11.5-15.2)
[2016-09-18 06:07] LABS: ALANINE AMINOTRANSFERASE 37 IU/L (9-52); ALBUMIN 2.4 g/dL (3.5-5.0); ALKALINE PHOSPHATASE 69 IU/L (38-126); ANION GAP 6 mEq/L (8-16); ASPARTATE AMINOTRANSFERASE 18 IU/L (14-46); BILIRUBIN,TOTAL 0.5 mg/dL (0.1-1.4); CALCIUM 7.8 mg/dL (8.5-10.4); CARBON DIOXIDE 30 mEq/l (22-31); CHLORIDE 103 mEq/L (97-110); CREATININE 0.6 mg/dL (0.6-1.0); GLOMERULAR FILTRATION RATE > 60; GLUCOSE 142 mg/dL (70-100); POTASSIUM 4.2 mEq/L (3.5-5.2); SODIUM 139 mEq/L (134-144)
[2016-09-18] MEDS: CARBOXYMETHYLCELLULOSE 0.5% 0.4 ML DROPERETTE EACHEYE SCH (09:25)
[2016-09-18] MEDS: DEXAMETHASONE 4 MG TAB PO SCH (09:26)
[2016-09-18] MEDS: ANASTROZOLE 1 MG TAB PO SCH (09:26)
[2016-09-18] MEDS: BISACODYL 5 MG EC TAB PO SCH ×2 (09:27→20:46)
[2016-09-18] MEDS: POLYETHYLENE GLYCOL 3350 17 GM PKT PO SCH (09:27)
[2016-09-18] MEDS: GENTAMICIN 0.3% OPHT DROPS 5ML OP SCH (09:30)
[2016-09-18] MEDS ORDERED: ACETAMINOPHEN 325 MG TAB PO PRN (12:50)
[2016-09-18] MEDS ORDERED: HYDROmorphONE/DILAUDID 4 MG TAB PO PRN (12:50)
[2016-09-18] MEDS ORDERED: BISACODYL 10 MG SUPP PR PRN (13:02)
[2016-09-18] MEDS ORDERED: LACTULOSE 20 GM/30 ML UDCUP PO PRN (13:02)
--- NOTE | 2016-09-18 13:19 | HOSPPROG ---
Hospitalist Progress Note Assessment/Plan: The patient is an 80-year-old female who has atrial flutter and is on anticoagulation who presented to the emergency room with hip pain. 1st encounter with the patient, chart reviewed. Discussed with the nurse. #. Acute left femoral neck fracture - postop day [address] Randhawa intramedullary nail of the left hip - surgery was held previously due to aflutter/rapid #. chronic afib/ atrial flutter - cont to be tachycardic - she is not on any ana laura therapy agent but is on oral anticoagulation - Cardiology / ok for surgery, but is high risk - she is at a slower rate than yesterday after receiving Lasix and digoxin #. E coli UTI -day 2 of Ceftriaxone #. breast cancer/ unclear of how advanced this is - she was recently in hospice and was discharged home #. gait instability - this caused her femoral neck fracture -continue PT OT #. Nicotine dependence -doesn't want a patch -current daily smoker, half pack per day #. Anticoagulated for atrial fibrillation -restart Coumadin #. code status -dnr #. Constipation -initiate bowel protocol #. DVT prophylaxis: athrombic pumps and initiation of Coumadin #. plan: Restart Lasix and potassium Continue PT OT Will need snf facility rehabilitation Reviewed with case management Remove Vazquez in a.m. Subjective: Does not currently have any pain. Complains of being constipated unable to have a bowel movement. Tearful and frustrated. Objective: Vital Signs Temp Pulse Resp BP Pulse Ox 36.5 C 125 H 18 100/58 L 96 09/18/16 11:42 09/18/16 11:42 09/18/16 11:42 09/18/16 11:42 09/18/16 11:42 Laboratory Results 09/18/16 05:27 09/18/16 05:27 09/17/16 09/18/16 09/19/16 05:59 05:59 05:59 Intake Total 1350 1800 540 Output Total 1250 2220 Balance 100 -420 540 PT 17.4 SEC (12.0-15.0) H 09/17/16 05:16 INR 1.43 (0.83-1.16) H 09/17/16 05:16 - Physical Exam Constitutional: not in pain, chronically ill appearing, obese Eyes: PERRL, anicteric sclera, EOMI Ears, Nose, Mouth, Throat: moist mucous membranes, hearing normal, ears appear normal Cardiovascular: irregularly irregular, tachycardia, No JVD Respiratory: no respiratory distress, reduced air movement, inspiratory crackles Gastrointestinal: distension, No tenderness, No ascites Genitourinary: vazquez in urethra Skin: warm, normal color, No erythema Musculoskeletal: muscular tenderness, generalized weakness, No normal joint ROM Psychiatric: not encephalopathic, anxious, poor insight, poor judgement, poor memory ICD10 Worksheet Patient Problems: Problems Problem Status Diagnosed Fracture of femoral neck, left Acute
[2016-09-18] MEDS: WARFARIN SODIUM 2 MG TAB PO SCH (15:01)
[2016-09-18] MEDS: SENNOSIDES/DOCUSATE SODIUM TAB PO SCH (20:47)
[2016-09-18] MEDS: DOCUSATE SODIUM 100 MG CAP PO SCH (20:47)
[2016-09-18] MEDS: AMITRIPTYLINE HCL 100 MG TAB PO SCH (20:47)
[2016-09-19] MEDS: morphINE SR 30 MG TAB PO SCH ×2 (04:06→21:08)
[2016-09-19] MEDS: IPRATROPIUM/ALBUTEROL 3 ML DEYVIAL IH SCH ×4 (05:41→21:01)
[2016-09-19] MEDS: CARBOXYMETHYLCELLULOSE 0.5% 0.4 ML DROPERETTE EACHEYE SCH (08:13)
[2016-09-19] MEDS: POTASSIUM CL 10 MEQ TAB PO SCH (08:13)
[2016-09-19] MEDS: SENNOSIDES/DOCUSATE SODIUM TAB PO SCH ×2 (08:13→21:08)
[2016-09-19] MEDS: ANASTROZOLE 1 MG TAB PO SCH (08:13)
[2016-09-19] MEDS: FUROSEMIDE 40 MG TAB PO SCH (08:14)
[2016-09-19] MEDS: DEXAMETHASONE 4 MG TAB PO SCH (08:14)
[2016-09-19] MEDS: BISACODYL 5 MG EC TAB PO SCH ×2 (08:14→21:09)
[2016-09-19] MEDS: POLYETHYLENE GLYCOL 3350 17 GM PKT PO SCH (08:15)
[2016-09-19] MEDS: GENTAMICIN 0.3% OPHT DROPS 5ML OP SCH (08:31)
--- NOTE | 2016-09-19 09:17 | SOAPPROG ---
CELESTINA Progress Note Assessment/Plan: Assessment:1. atrial flutter...chronic...well tolerated.... 2-D echo yesterday showed normal lvef and no significant VHD..off coumadin for surgery...some variability to A-V block probably from digoxin..will give another dose now pre - op...pt understands her high risks for complications with her atrial flutter, long continued cigarette smoking and unknown immunological status given her h/o "bone marrow "cancer and hospice care...pt tolerated orif well from cv standpoint...hr's improved on digoxin ..creatinine stable..recommend digoxin chronically for rate control..pt already on chronic coumadin...ok to d/c to snf from my standpoint when stable post orthopedically Plan:1.digoxin 0.125 mg po q day...have digoxin level drawn and followed as out pt when pt gets her inr/pt tested at snf an d in the future 09/17/16 14:38 09/19/16 09:12 Subjective: pt up in bed with PT today..no cv c/o..chronic afib/flutter...restarted coumadin..rate control strategy Objective: Vital Signs Temp Pulse Resp BP Pulse Ox 36.6 C 128 H 17 104/67 95 09/19/16 08:06 09/19/16 08:06 09/19/16 08:06 09/19/16 08:06 09/19/16 08:06 Laboratory Results 09/18/16 05:27 09/18/16 05:27 09/18/16 09/19/16 09/20/16 05:59 05:59 05:59 Intake Total 1800 990 Output Total 2220 800 Balance -420 190 PT 17.4 SEC (12.0-15.0) H 09/17/16 05:16 INR 1.43 (0.83-1.16) H 09/17/16 05:16 Physical Exam - Physical Exam Respiratory: decreased breath sounds Cardiac/Chest: irregularly irregular ICD10 Worksheet Patient Problems: Problems Problem Status Diagnosed Fracture of femoral neck, left Acute
[2016-09-19] MEDS ORDERED: BISACODYL 10 MG SUPP PR ONE (11:38)
--- NOTE | 2016-09-19 12:41 | HOSPPROG ---
Hospitalist Progress Note Assessment/Plan: The patient is an 80-year-old female who has atrial flutter and is on anticoagulation who presented to the emergency room with hip pain. #. Acute left femoral neck fracture - postop day [address] Randhawa intramedullary nail of the left hip - surgery was held previously due to aflutter/rapid #. chronic afib/ atrial flutter - cont to be tachycardic - Reviewed with Cardiology Dr. Wyman - continue digoxin -will check digoxin level in a week #. E coli UTI -day 3 of Ceftriaxone will dc #. breast cancer/ unclear of how advanced this is - she was recently in hospice and was discharged home #. gait instability - this caused her femoral neck fracture -continue PT OT #. Nicotine dependence -doesn't want a patch -current daily smoker, half pack per day #. Anticoagulated for atrial fibrillation -restart Coumadin Follow lab #. code status -dnr #. Constipation -initiate bowel protocol #. DVT prophylaxis: athrombic pumps and initiation of Coumadin #. plan: Continue PT OT Will need halfway facility rehabilitation Reviewed with case management Subjective: Feeling better than yesterday. Pain is stable. Objective: Vital Signs Temp Pulse Resp BP Pulse Ox 36.6 C 132 H 20 109/68 96 09/19/16 11:46 09/19/16 11:46 09/19/16 11:46 09/19/16 11:46 09/19/16 11:46 Laboratory Results 09/18/16 05:27 09/18/16 05:27 09/18/16 09/19/16 09/20/16 05:59 05:59 05:59 Intake Total 1800 990 Output Total 2220 800 200 Balance -420 190 -200 PT 17.4 SEC (12.0-15.0) H 09/17/16 05:16 INR 1.43 (0.83-1.16) H 09/17/16 05:16 - Physical Exam Constitutional: not in pain, chronically ill appearing, obese Eyes: PERRL, anicteric sclera, EOMI Ears, Nose, Mouth, Throat: moist mucous membranes, hearing normal, ears appear normal Cardiovascular: irregularly irregular, tachycardia, No JVD Respiratory: no respiratory distress, no rales or rhonchi, reduced air movement Gastrointestinal: No no palpable masses, No ascites, No guarding Skin: warm, normal color, No erythema Musculoskeletal: muscular tenderness, generalized weakness, No normal joint ROM Neurologic: AAOx3 Psychiatric: not anxious, not encephalopathic, poor insight ICD10 Worksheet Patient Problems: Problems Problem Status Diagnosed Fracture of femoral neck, left Acute
[2016-09-19] MEDS: DIGOXIN 125 MCG TAB PO SCH (13:09)
[2016-09-19] MEDS: WARFARIN SODIUM 2 MG TAB PO SCH (16:34)
[2016-09-19] MEDS: DOCUSATE SODIUM 100 MG CAP PO SCH (21:08)
[2016-09-19] MEDS: AMITRIPTYLINE HCL 100 MG TAB PO SCH (21:08)
[2016-09-20] MEDS: morphINE SR 30 MG TAB PO SCH (03:51)
[2016-09-20 05:40] LABS: INR 1.11 (0.83-1.16); PROTIME(PATIENT) 14.2 SEC (12.0-15.0)
[2016-09-20] MEDS: IPRATROPIUM/ALBUTEROL 3 ML DEYVIAL IH SCH ×2 (06:29→10:36)
[2016-09-20] MEDS: POLYETHYLENE GLYCOL 3350 17 GM PKT PO SCH (09:51)
[2016-09-20] MEDS: SENNOSIDES/DOCUSATE SODIUM TAB PO SCH (09:51)
[2016-09-20] MEDS: ANASTROZOLE 1 MG TAB PO SCH (09:52)
[2016-09-20] MEDS: DEXAMETHASONE 4 MG TAB PO SCH (09:52)
[2016-09-20] MEDS: CARBOXYMETHYLCELLULOSE 0.5% 0.4 ML DROPERETTE EACHEYE SCH (09:52)
[2016-09-20] MEDS: FUROSEMIDE 40 MG TAB PO SCH (09:52)
[2016-09-20] MEDS: POTASSIUM CL 10 MEQ TAB PO SCH (09:52)
[2016-09-20] MEDS: DIGOXIN 125 MCG TAB PO SCH (09:53)
[2016-09-20] MEDS: BISACODYL 5 MG EC TAB PO SCH (09:53)
[2016-09-20] MEDS: GENTAMICIN 0.3% OPHT DROPS 5ML OP SCH (09:53)
--- NOTE | 2016-09-20 10:13 | SOAPPROG ---
CELESTINA Progress Note Assessment/Plan: Assessment:1. atrial flutter...chronic...well tolerated.... 2-D echo yesterday showed normal lvef and no significant VHD..off coumadin for surgery...some variability to A-V block probably from digoxin..will give another dose now pre - op...pt understands her high risks for complications with her atrial flutter, long continued cigarette smoking and unknown immunological status given her h/o "bone marrow "cancer and hospice care...pt tolerated orif well from cv standpoint...hr's improved on digoxin ..creatinine stable..recommend digoxin chronically for rate control..pt already on chronic coumadin...ok to d/c to snf from my standpoint when stable post orthopedically...no changes today to snf soon..will sign off case Plan:1.digoxin 0.125 mg po q day...have digoxin level drawn and followed as out pt when pt gets her inr/pt tested at snf an d in the future 09/17/16 14:38 09/19/16 09:12 09/20/16 10:13 Subjective: no cv c/o..good spirits Objective: Vital Signs Temp Pulse Resp BP Pulse Ox 36.2 C 101 H 16 106/70 100 09/20/16 07:41 09/20/16 09:53 09/20/16 07:41 09/20/16 07:41 09/20/16 07:41 Laboratory Results 09/18/16 05:27 09/18/16 05:27 09/19/16 09/20/16 09/21/16 05:59 05:59 05:59 Intake Total 990 650 Output Total 800 1450 550 Balance 190 -800 -550 PT 14.2 SEC (12.0-15.0) 09/20/16 05:21 INR 1.11 (0.83-1.16) 09/20/16 05:21 Physical Exam - Physical Exam Respiratory: lungs clear Cardiac/Chest: irregularly irregular ICD10 Worksheet Patient Problems: Problems Problem Status Diagnosed Fracture of femoral neck, left Acute
--- NOTE | 2016-09-20 12:35 | PDIAF ---
- Diagnosis Diagnosis: hip fx Code Status: Do Not Resuscitate - Medication Management Discharge Medications: Medications to Continue on Transfer AMITRIPTYLINE HCL [Amitriptyline 100 mg] 100 mg PO HS 09/15/16 [Last Taken 09/14] Acetaminophen [Tylenol 325mg (*)] 650 mg PO Q4 PRN 09/15/16 [Last Taken Unknown] Albuterol [Proventil Inhaler HFA (*)] 2 puffs IH Q4H 09/15/16 [Last Taken Unknown] Anastrozole [Arimidex 1 mg (*)] 1 mg PO DAILY 09/15/16 [Last Taken 09/15/16] Bisacodyl [Dulcolax] 5 mg PO BID 09/15/16 [Last Taken 09/15/16] Dexamethasone [Decadron 4 MG (*)] 8 mg PO DAILY 09/15/16 [Last Taken 09/15/16] Dextran 70/Hypromellose [Artificial Tears] 1 each OP DAILY PRN 09/15/16 [Last Taken Unknown] Docusate Sodium [Colace 100 MG (*)] 100 mg PO HS 09/15/16 [Last Taken 09/14/16] Furosemide [Lasix 40 MG (*)] 40 mg PO DAILY 09/15/16 [Last Taken Unknown] Gentamicin 0.3% [Gentak 0.3% Opht Drops] 2 drop OP DAILY 09/15/16 [Last Taken Unknown] HYDROmorphone HCL [Dilaudid 4 mg (*)] 4 mg PO TID PRN 09/15/16 [Last Taken Unknown] Ipratropium/Albuterol [Duoneb (*)] 3 ml IH DAILY 09/15/16 [Last Taken 09/15/16] LORazepam [Ativan (*)] 0.5 mg PO Q6H PRN 09/15/16 [Last Taken Unknown] Morphine Sulfate [Ms Contin] 30 mg PO DAILY@04,21 09/15/16 [Last Taken Unknown] Polyvinyl Alcohol/Povidone/Pf [Refresh Classic Eye Drops] 1 each OP DAILY [Last Taken Unknown] Potassium Chloride [Klor-Con 10] 10 meq PO DAILY 09/15/16 [Last Taken Unknown] Warfarin Sodium [Coumadin 2MG (*)] 1 mg PO MOTUWETHFRSA 09/15/16 [Last Taken Unknown] Warfarin Sodium [Coumadin 2MG (*)] 2 mg PO LOPEZ 09/15/16 [Last Taken Unknown] morphINE IR [morphINE IR 15 mg (*)] 15 mg PO DAILY@14 09/15/16 [Last Taken 09/15 16:00] Digoxin [Lanoxin 125 mcg (RX)] 125 mcg PO DAILY AT 10AM #0 tab 09/20/16 [Last Taken Unknown] Polyethylene Glycol 3350 [Miralax 17 gm (*)] 17 gm PO DAILY #0 pkt 09/20/16 [ Last Taken Unknown] Sennosides/Docusate Sodium [Senokot-S] 1 - 2 tab PO BID #0 tab 09/20/16 [Last Taken Unknown] Discharge Medications: Refer to the Discharge Home Medication list for PRN reason. PICC Care - Routine: N/A - Orders Services needed: Registered Nurse, Physical Therapy, Occupational Therapy - Labs/Radiology PT/INR Date: 09/22/16 Other Lab Name, Date and Time: digoxin - Follow Up Care Current Providers and Referrals: Patient,NotPresent [Unknown] - As per Instructions
[2016-09-20 12:41] VITALS: BP 114/65; PULSE 127; RESP 16; TEMP 98.2; O2SAT 92
[2016-09-20] MEDS ORDERED: PNEUMOC 13-VAL CONJ-DIP CRM/PF 0.5 ML SYR IM ONE (13:37)
[2016-09-20] MEDS ORDERED: FLU VACC TS 2016-17(65YR+)/PF 0.5 ML SYR (FLUZONE HIGH DOSE) IM ONE (13:37)
--- NOTE | 2016-09-20 13:55 | GDS ---
[f rep st] DISCHARGE SUMMARY DISCHARGE DIAGNOSES: 1. Acute left femoral neck fracture. 2. Chronic atrial fibrillation. 3. Escherichia coli urinary tract infection. 4. History of breast cancer. 5. Gait instability. 6. Nicotine dependence. 7. Chronic anticoagulation. 8. Constipation. CONSULTATIONS: 1. Dr. Wyman of Cardiology. 2. Dr. Randhawa of Orthopedics. PHYSICAL EXAM: GENERAL: The patient is alert and oriented. VITAL SIGNS: Afebrile 36.8, pulse is 1 27, respiratory rate 16, blood pressure is 114/65. She is saturating 90% on 3 L. I have seen and ev aluated the patient on the day of discharge. HOSPITAL COURSE: Ms. Fox is an 80-year-old female, who presented to the emergency room with compl aints of hip pain. She was evaluated and diagnosed with: 1. Acute left femoral neck fracture. She had surgical intervention performed by Dr. Randhawa with a n intramedullary nail of the left hip. She responded well to surgery; however, her mobility is signi ficantly decreased and she required residential facility rehabilitation. 2. Chronic atrial fibrillation. Ms. Fox does continue to be tachycardic. She has responded well to digoxin and will require to have a digoxin level checked in a week. Appreciate cardiology's cons ultation and outpatient followup. 3. E coli urinary tract infection. This has been treated with Rocephin. 4. History of breast cancer. Patient was recently discharged from Hospice. She will continue hospi ce at her request. 5. Gait instability. She requires excessive physical therapy, as well as occupational therapy. 6. Nicotine dependence. Patient states that she does not want to discontinue her current tobacco us e and does not want a nicotine patch. 7. Chronic anticoagulation. This is secondary to patient's atrial fibrillation and has been reiniti ated in the postoperative setting. 8. Constipation. This has resolved. DISPOSITION: Ms. Fox will be discharged to [facility] for further medical management and rehabili tation. There are no pending studies. DISCHARGE MEDICATIONS: Please refer to the patient's electronic medical record for specific medicati ons and adjustments. FOLLOWUP: Will be with Dr. Randhawa, as well as the patient's primary care physician. I have ordere d for her to have her digoxin level evaluated and checked on 09/22/2016. I spent greater than 35 minutes in the care, coordination, and management of the patient's dispositio n. /[id number]/MODL
[2016-09-20] MEDS ORDERED: WARFARIN SODIUM 2 MG TAB PO SCH (16:00)
== END 2016-09-20 15:35 | DRG 481 ==
LOC: EDBD 19:22 → F3N 22:06
PROVIDERS: ADMIT Internal Medicine; ATTEND Internal Medicine
PROC: 0QS706Z Reposition Left Upper Femur with Intramedullary Internal Fixation Device, Open Approach (ICD-10-PCS; principal; 2016-09-17 16:45)
DX: S72.002A Fracture of unspecified part of neck of left femur, initial encounter for closed fracture (principal); W06.XXXA Fall from bed, initial encounter; I48.92 Unspecified atrial flutter; I48.2 Chronic atrial fibrillation; N39.0 Urinary tract infection, site not specified; B96.20 Unspecified Escherichia coli [E. coli] as the cause of diseases classified elsewhere; K59.00 Constipation, unspecified; C79.51 Secondary malignant neoplasm of bone; F17.210 Nicotine dependence, cigarettes, uncomplicated; M85.80 Other specified disorders of bone density and structure, unspecified site; R26.9 Unspecified abnormalities of gait and mobility; Z92.3 Personal history of irradiation; Z99.81 Dependence on supplemental oxygen; Z79.01 Long term (current) use of anticoagulants; Z85.3 Personal history of malignant neoplasm of breast; Z85.840 Personal history of malignant neoplasm of eye
CPT/HCPCS: 97001-GP; 97003-GO; 97530-GO; 97530-GP; C1713; C1769; G0008; G0009; G8978-GP-CM; G8979-GP-CL; G8987-GO-CM; G8988-GO-CK; J0690; J0696; J1100; J2001; J2405; J3010